=== PATIENT | female | born 1990 | race Caucasian/White ===

== ENCOUNTER 2018-12-31 21:31 | Emergency (ER) | payer OTHER ==
[~2018-12-31] VITALS: Ht 157.5 cm; Wt 52.3 kg
[2018-12-31] MEDS ORDERED: ADDE10 PO (21:41)
[2018-12-31] MEDS ORDERED: IBUP-2354 PO (21:41)
[2019-01-01 00:22] VITALS: BP 122/68
== END 2019-01-01 00:44 | disposition home or self-care (01) ==
LOC: EDBD 21:31 → EMS 21:31
DX: L03.113 Cellulitis of right upper limb (principal); Z88.5 Allergy status to narcotic agent; Z91.018 Allergy to other foods
CPT/HCPCS: 96372; 99283; J0690